=== PATIENT | male | born 1990 | race Caucasian/White ===

== ENCOUNTER → 2024-05-01 | Outpatient (BNVA) | payer BC, SELFPAY | END | disposition home or self-care (01) | PROVIDERS: PCP Physician Assistant; Referring Provider Physician Assistant; Visit Provider Urology | DX: Z30.2 Encounter for sterilization (principal); N40.0 Benign prostatic hyperplasia without lower urinary tract symptoms; F17.210 Nicotine dependence, cigarettes, uncomplicated | CPT/HCPCS: 81003; 99202; G0463 ==

== ENCOUNTER 2024-05-21 06:50 | Day surgery (SDC) | payer BC, SELFPAY ==
[2024-05-20 14:07] VITALS: BMI 20.9
[2024-05-21 07:24] VITALS: BP 132/69; PULSE 56; RESP 14; TEMP 36.7; O2SAT 99; BMI 19.7
[2024-05-21] MEDS: RINGERS LACTATED 500 ML 500 ML 20 ML IV (09:21)
[2024-05-21 10:02] VITALS: BP 114/66; PULSE 57; RESP 17; TEMP 36.3; O2SAT 98
--- NOTE | 2024-05-21 10:02 | SUR.PHASEII ---
1002 Patient arrived to recovery awake and alert, talking with staff, breathing unlabored, vital signs stable, denies pain, dressing intact to scrotal area; dissolvable sutures, ointment, fluffs, scrotal support, no bleeding noted, lung sounds clear upon auscultation, bilateral radial pulses present when palpated, report received from Jesus LEONARDO and Dr. Valentino
--- NOTE | 2024-05-21 10:05 | PD.SUROPNT ---
Date of Procedure 05/21/24 Pre Op Diagnosis elective sterilization Findings post op sterilizatioin Pathology / specimen None Estimated Blood Loss 0.2 Surgeon Aki Ventura MD Surgical Staff Operation Date: 05/21/24 09:15 Case Staff Anesthesiologist: Toño Valentino
--- NOTE | 2024-05-21 10:05 | PD.SUROPNT ---
Date of Procedure 05/21/24 Pre Op Diagnosis Elective sterilization Post Op Diagnosis Same Procedure Bilateral vasectomy Findings Bilateral vas no pathology Procedure Description Indication for procedure this is a 34-year-old gentleman who is with children desired bilateral vasectomy procedure and complications were discussed with the patient in great detail informed consent is obtained he understood very well there is no warranty for permanent sterilization literature regarding bilateral vasectomy was provided to the patient Patient was brought to the operating room in a satisfactory condition after appropriate premedication he was appropriately identified by surgeon and operating room staff site scope and indication of the procedure were reconfirmed with the patient MAC anesthesia was given uneventfully parts were prepped and draped in the usual sterile fashion Next the right vas deferens was palpated between 2 fingers and a thumb 2% lidocaine with quarter percent Marcaine was instilled appropriately vertical skin incision was made proper hemostasis was secured. Next the vas deferens was brought into the incision it was from its various fascial coverings between 2 silver clips centimeter of the vas deferens was excised. The lumen of the vas deferens was diathermized with coagulation diathermy distal end of the vas deferens was buried between various fascial layers. Skin was approximated with 3-0 chromic. Similar procedure was repeated on the opposite side. Next this sterile dressings were applied. Pressure bandage was given Patient having tolerated the procedure well and was sent to recovery room in a satisfactory condition to be discharged home with full postoperative instructions were verbally as well as in writing to be followed in urology office in 6 weeks' time. Anesthesia MAC and local Pathology / specimen None Estimated Blood Loss 0.2 Condition Stable Disposition PACU Surgeon Aki Ventura MD Surgical Staff Operation Date: 05/21/24 09:15 Case Staff Anesthesiologist: Toño Valentino
[2024-05-21 10:07] VITALS: BP 122/66; PULSE 61; RESP 16; O2SAT 99
[2024-05-21 10:12] VITALS: BP 115/62; PULSE 59; RESP 14; O2SAT 97
[2024-05-21 10:17] VITALS: BP 112/63; PULSE 46; RESP 15; O2SAT 99
--- NOTE | 2024-05-21 10:20 | SUR.PHASEII ---
1020 Dr. Valentino at bedside, notified him regarding patient low heart rate, going down to 43, anesthesia provided states that was okay as long as his blood pressure is within normal range, will continue to monitor patient
[2024-05-21 10:32] VITALS: BP 115/78; PULSE 56; RESP 13; TEMP 36.3; O2SAT 100
--- NOTE | 2024-05-21 10:44 | SUR.PHASEII ---
1044 Patient meets discharge criteria from recovery, awake and alert, breathing unlabored, vital signs stable, denies pain, dressing intact; no bleeding noted, patient drinking water; tolerating well, denies nausea, patient able to dress himself into his clothing, discharge instructions given over the phone on speak phone for patient to hear due to patient having small children in the car, discharge instructions signed at car side. Patient given all his belongings prior to discharge, transported via wheelchair and left in a private vehicle.
== END 2024-05-21 10:44 | disposition home or self-care (01) ==
PROVIDERS: PCP Physician Assistant; Referring Provider Urology; Visit Provider Urology
PROC: (CPT 55250; principal; 2024-05-21 09:15)
DX: Z30.2 Encounter for sterilization (principal)
CPT/HCPCS: 55250; A4649; J1885; J2250; J2704; J3010; J3490; J7120; A9270

== ENCOUNTER → 2024-08-18 | Outpatient (BNVA) | payer BC, SELFPAY | END | disposition home or self-care (01) | PROVIDERS: PCP Physician Assistant; Referring Provider Physician Assistant; Visit Provider Urology | DX: N40.0 Benign prostatic hyperplasia without lower urinary tract symptoms (principal); Z98.52 Vasectomy status; Z87.891 Personal history of nicotine dependence | CPT/HCPCS: 81003; 99212; G0463 ==

== ENCOUNTER → 2024-08-18 | Outpatient (CLI) | payer BC, SELFPAY ==
[2024-08-18 11:55] LABS: Post Vasectomy Sperm Presence No Spermatozoa Seen (No Sperm)
== END | disposition home or self-care (01) ==
LOC: COPL 11:19 → SLDO 11:20
PROVIDERS: PCP Urology; Referring Provider Urology; Visit Provider Urology
DX: Z30.2 Encounter for sterilization (principal)
CPT/HCPCS: 89321